=== PATIENT | female | born 1970 | race Caucasian/White ===

== ENCOUNTER 2017-08-18 15:34 | Emergency (ER) | payer SELFPAY ==
[~2017-08-18] VITALS: Ht 162.6 cm; Wt 52.2 kg
--- NOTE | 2017-08-18 18:03 | Diagnostic Imaging Report ---
RIGHT TIBIA AND FIBULA X-RAY - 2 VIEWS, RIGHT ANKLE X-RAY, 3 VIEWS, RIGHT FOOT X-RAY, 3 VIEWS HISTORY: \S\TWISTED ANKLE HAS PROXIMAL FIBULAT TENDERNESS \[id number] \[id number] \S\Y COMPARISON: None available. FINDINGS: Bones: No acute displaced fracture. Osseous alignment is within normal limits. Joints: The joint spaces are well-maintained. Soft tissues: The soft tissues appear unremarkable. IMPRESSION: No acute radiographic abnormality. Signed by: Dr. Cori Joseph M.D. on 08/18/2017 5:59 PM
--- NOTE | 2017-08-18 18:03 | Diagnostic Imaging Report ---
RIGHT TIBIA AND FIBULA X-RAY - 2 VIEWS, RIGHT ANKLE X-RAY, 3 VIEWS, RIGHT FOOT X-RAY, 3 VIEWS HISTORY: \S\TWISTED ANKLE HAS PROXIMAL FIBULAT TENDERNESS \[id number] \S\[id number] \S\Y COMPARISON: None available. FINDINGS: Bones: No acute displaced fracture. Osseous alignment is within normal limits. Joints: The joint spaces are well-maintained. Soft tissues: The soft tissues appear unremarkable. IMPRESSION: No acute radiographic abnormality. Signed by: Dr. Cori Joseph M.D. on 08/18/2017 5:59 PM
--- NOTE | 2017-08-18 18:03 | Diagnostic Imaging Report ---
RIGHT TIBIA AND FIBULA X-RAY - 2 VIEWS, RIGHT ANKLE X-RAY, 3 VIEWS, RIGHT FOOT X-RAY, 3 VIEWS HISTORY: \S\TWISTED ANKLE HAS PROXIMAL FIBULAT TENDERNESS \[id number] \S\[id number] \S\Y COMPARISON: None available. FINDINGS: Bones: No acute displaced fracture. Osseous alignment is within normal limits. Joints: The joint spaces are well-maintained. Soft tissues: The soft tissues appear unremarkable. IMPRESSION: No acute radiographic abnormality. Signed by: Dr. Cori Joseph M.D. on 08/18/2017 5:59 PM
== END 2017-08-18 18:18 | disposition home or self-care (01) ==
LOC: ER 15:34
DX: S82.424A Nondisplaced transverse fracture of shaft of right fibula, initial encounter for closed fracture (principal); W01.0XXA Fall on same level from slipping, tripping and stumbling without subsequent striking against object, initial encounter; Y93.01 Activity, walking, marching and hiking; Y92.488 Other paved roadways as the place of occurrence of the external cause
CPT/HCPCS: 99284